=== PATIENT | male | born 1960 ===

== ENCOUNTER 2021-02-09 09:11 | Emergency (ER) | payer OTHER ==
[~2021-02-09] VITALS: Ht 170.2 cm; Wt 61.0 kg
[2021-02-09] MEDS ORDERED: IV NORMAL SALINE 1,000ML 1,000 ML IV ONE ×2 (09:15→12:15)
[2021-02-09] MEDS ORDERED: ONDANSETRON PF 4 MG/2 ML VIAL. IVP ONE (09:15)
[2021-02-09] MEDS ORDERED: MORPHINE SULFATE 4 MG/ML DISP.SYRIN. IV ONE (09:15)
--- NOTE | 2021-02-09 09:21 | PHYS DOC ---
General Adult EDM: Chief Complaint: MECHANICAL FALL HPI: HPI: 60-year-old male presents after fall from ladder. Patient believes he was about 12 feet up on the ladder trying to get onto a roof when the ladder became unstable and he fell onto a rock flower bed below. Patient remembers waking up on the ground. He had loss of consciousness. He is currently complaining of neck pain, thoracic pain, facial pain. He has bleeding from his mouth. Patient has existing poor dentition. Patient denies alcohol or drugs. He does use medical marijuana. The patient is able to feel all 4 extremities. He is able to move all 4 extremities. He does state that his hands feel tingly bilaterall y. No loss of bowel or bladder. The patient was able to walk into the emergency room from [facility]. His biggest complaints are his neck and back pain. Review of Systems: Review of Systems: Constitutional: Denies fever or chills Eyes: Denies change in visual acuity HENT: Dental trauma Respiratory: Denies cough or shortness of breath Cardiovascular: Denies chest pain or edema GI: Denies abdominal pain, nausea, vomiting, bloody stools or diarrhea : Denies dysuria Musculoskeletal: Neck pain, thoracic pain Integument: Denies rash Neurologic: Denies headache, focal weakness or sensory changes Endocrine: Denies polyuria or polydipsia Lymphatic: Denies swollen glands Psychiatric: Denies depression or anxiety Physical Exam: PE: Constitutional: Well developed, well nourished, mild acute distress, non-toxic appearance. [] HENT: Normocephalic, abrasions to the face, bilateral external ears normal, blood in the mouth. Unable to determine location due to collar restrictions. Poor dentition. [] Eyes: PERRLA, EOMI, in the right eye. Left eye pupil oblong and not reactive. Conjunctiva normal, no discharge. 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 [] Neck: Cervical bony tenderness, placed in a collar. Thoracic tenderness without step-offs. [] Cardiovascular: Heart rate regular rhythm, no murmur [] Lungs & Thorax: Bilateral breath sounds clear to auscultation [] Abdomen: Bowel sounds normal, soft, no tenderness, no masses, no pulsatile masses. [] Skin: Warm, dry, no erythema, no rash. [] Back: No tenderness, no CVA tenderness. [] Extremities: No tenderness, no cyanosis, no clubbing, ROM intact, no edema. [] Neurologic: Alert and oriented X 3, normal motor function, normal sensory function, no focal deficits noted. [] Psychologic: Affect normal, judgement normal, mood normal. [] EKG: EKG: [] Radiology/Procedures: Radiology/Procedures: [] Impressions: CT HEAD AND MAXILLOFACIAL WO, CT CERVICAL SPINE WO Date: 02/09/2021 9:24 AM Clinical Indication: fall from ladder, neck pain Comparison: None. Technique: 5 mm axial tomographic images were obtained of the head without contrast. These were viewed on brain and bone windows. Axial helical images of the face were obtained without contrast. Axial and coronal reconstruction was performed. CT imaging of the cervical spine was performed without contrast. Coronal and sagittal reformatted images were performed. One or more of the following dose reduction techniques were utilized: Automated exposure control (AEC), Adjustment of mA and/or kV according to patient size, Use of iterative reconstruction technique such as ASiR, CT scan done according to ALARA and image gently/image wisely CT HEAD FINDINGS: Moderate-sized area of right frontal encephalomalacia. No intra- or extra-axial mass or fluid collection. No acute hemorrhage. The ventricles are normal in size, shape, and morphology. The gilliam-white matter junction is normal. The basilar cisterns are patent. The mastoid air cells are clear. No aggressive osseous lesion or fracture. CT FACE FINDINGS: There is no acute facial bone fracture. The paranasal sinuses are clear. The orbits are normal. The globes are intact. The nasal septum is deviated to the left. Poor dentition with multiple dental caries and periapical lucencies. CT CERVICAL SPINE FINDINGS: The cervical spine is normally aligned. No acute fracture. No aggressive lytic or blastic osseous lesion. Mild multilevel degenerative disc height loss. No high-grade spinal canal stenosis or neural foraminal narrowing. The thyroid gland is normal. No cervical lymphadenopathy. The visualized aerodigestive tract is unremarkable. The visualized lung apices are clear. Impression: 1. No acute intracranial process. 2. No acute facial bone fracture. 3. No acute osseous abnormality of the cervical spine. 4. Poor dentition with multiple dental caries and periapical lucencies. Electronically signed by: Wellington Fortune MD (02/09/2021 9:57 AM) [id number] DICTATED AND SIGNED BY: WELLINGTON FORTUNE MD DATE: 02/09/2152 CC: ZAYRA DRAKE DO ~MTH0 0 CT THORACIC SPINE WO 02/09/2021 9:24 AM Indication: fall from ladder, neck pain Comparison: None. Technique: CT imaging of the thoracic spine was performed without contrast. Cor onal and sagittal reformatted images were performed. One or more of the following dose reduction techniques were utilized: Automated exposure control (AEC), Adjustment of mA and/or kV according to patient size, Use of iterative reconstruction technique such as ASiR, CT scan done according to ALARA and image gently/image wisely. Findings: The thoracic spine is normally aligned. No acute fracture. Vertebral body heights are maintained without compression deformity. Multilevel degenerative disc height loss. No aggressive lytic or blastic osseous lesion. No significant spinal canal stenosis or neural foraminal narrowing. The visualized lungs are clear. No pleural effusion. The visualized thoracic aorta is normal caliber. Impression: 1. No acute osseous abnormality of the thoracic spine. 2. Coronary artery atherosclerotic disease. Electronically signed by: Wellington Fortune MD (02/09/2021 10:00 AM) [id number] DICTATED AND SIGNED BY: WELLINGTON FORTUNE MD DATE: 02/09/2157 CC: ZAYRA DRAKE DO ~MTH0 0 Heart Score: C/O Chest Pain: N/A Risk Factors: Risk Factors: DM, Current or recent (<one month) smoker, HTN, HLP, family history of CAD, obesity. Risk Scores: Score 0 - 3: 2.5% MACE over next 6 weeks - Discharge Home Score 4 - 6: 20.3% MACE over next 6 weeks - Admit for Clinical Observation Score 7 - 10: 72.7% MACE over next 6 weeks - Early Invasive Strategies Course & Med Decision Making: Course & Med Decision Making Pertinent Labs and Imaging studies reviewed. (See chart for details) On arrival the patient was placed in a cervical collar. He was given Zofran and morphine for his pain. The patient was awake, alert and answering all questions appropriately. The patient's imaging is negative for fractures. Head CT is negative for acute findings. He does have evidence of previous stroke. See official reads for more details. His labs are unremarkable. Patient just appears to be banged up. I will discharge her with Flexeril and Percocet. He is stable for discharge at this time. [] Evette Disclaimer: [place] Disclaimer: This electronic medical record was generated, in whole or in part, using a voice recognition dictation system. Departure Departure: Impression: Primary Impression: Fall from ladder Qualified Codes: W11.XXXA - Fall on and from ladder, initial encounter Disposition: HOME / SELF CARE / HOMELESS Condition: STABLE Patient Instructions: Abrasion, [id number], Contusion, [id number] Scripts Oxycodone Hcl/Acetaminophen (PERCOCET 5-325 MG TABLET ) 1 Each Tablet 1 TAB PO PRN TID PRN for PAIN MDD 3 Tablet(s) for 5 Days, #15 TAB 0 Refills Prov: ZAYRA DRAKE DO 02/09/21 Cyclobenzaprine Hcl (CYCLOBENZAPRINE HCL) 10 Mg Tablet 1 TAB PO TID PRN for MUSCLE SPASMS, #30 TAB Prov: ZAYRA DRAKE DO 02/09/21 ZAYRA DRAKE DO Feb 09, 2021 09:21
[2021-02-09 09:53] LABS: BASO # 0.1 x10^3/uL (0.0-0.2); BASO % 1 % (0-3); EOS # 0.1 x10^3/uL (0.0-0.7); EOS % 1 % (0-3); HEMOGLOBIN 14.9 g/dL (13.0-17.5); LYMPH # 1.5 x10^3/uL (1.0-4.8); LYMPH % 19 % (24-48); MEAN CORPUSCULAR HEMOGLOBIN 31 pg (25-35); MEAN CORPUSCULAR HGB CONC 34 g/dL (31-37); MEAN CORPUSCULAR VOLUME 93 fL (79-100); MONO # 0.3 x10^3/uL (0.0-1.1); MONO % 4 % (0-9); NEUT # 6.1 x10^3uL (1.8-7.7); NEUT % 76 % (31-73); PLATELET COUNT 176 x10^3/uL (140-400); RED BLOOD COUNT 4.74 x10^6/uL (4.30-5.70); RED CELL DISTRIBUTION WIDTH 14.4 % (11.5-14.5); WHITE BLOOD COUNT 8.1 x10^3/uL (4.0-11.0)
--- NOTE | 2021-02-09 09:59 | RAD ---
CT HEAD AND MAXILLOFACIAL WO, CT CERVICAL SPINE WO Date: 02/09/2021 9:24 AM Clinical Indication: fall from ladder, neck pain Comparison: None. Technique: 5 mm axial tomographic images were obtained of the head without contrast. These were view ed on brain and bone windows. Axial helical images of the face were obtained without contrast. Axial and coronal reconstruction was performed. CT imaging of the cervical spine was performed without cont rast. Coronal and sagittal reformatted images were performed. One or more of the following dose reduc tion techniques were utilized: Automated exposure control (AEC), Adjustment of mA and/or kV according to patient size, Use of iterative reconstruction technique such as ASiR, CT scan done according to A GLENNY and image gently/image wisely CT HEAD FINDINGS: Moderate-sized area of right frontal encephalomalacia. No intra- or extra-axial mass or fluid collect ion. No acute hemorrhage. The ventricles are normal in size, shape, and morphology. The gilliam-white ma tter junction is normal. The basilar cisterns are patent. The mastoid air cells are clear. No aggressive osseous lesion or fracture. CT FACE FINDINGS: There is no acute facial bone fracture. The paranasal sinuses are clear. The orbits are normal. The globes are intact. The nasal septum is de viated to the left. Poor dentition with multiple dental caries and periapical lucencies. CT CERVICAL SPINE FINDINGS: The cervical spine is normally aligned. No acute fracture. No aggressive lytic or blastic osseous les ion. Mild multilevel degenerative disc height loss. No high-grade spinal canal stenosis or neural foramina l narrowing. The thyroid gland is normal. No cervical lymphadenopathy. The visualized aerodigestive tract is unrem arkable. The visualized lung apices are clear. Impression: 1. No acute intracranial process. 2. No acute facial bone fracture. 3. No acute osseous abnormality of the cervical spine. 4. Poor dentition with multiple dental caries and periapical lucencies. Electronically signed by: Song Bobby MD (02/09/2021 9:57 AM) [id number]
--- NOTE | 2021-02-09 10:02 | RAD ---
CT THORACIC SPINE WO 02/09/2021 9:24 AM Indication: fall from ladder, neck pain Comparison: None. Technique: CT imaging of the thoracic spine was performed without contrast. Coronal and sagittal ref ormatted images were performed. One or more of the following dose reduction techniques were utilized: Automated exposure control (AEC), Adjustment of mA and/or kV according to patient size, Use of itera tive reconstruction technique such as ASiR, CT scan done according to ALARA and image gently/image wi sely. Findings: The thoracic spine is normally aligned. No acute fracture. Vertebral body heights are maintained with out compression deformity. Multilevel degenerative disc height loss. No aggressive lytic or blastic o sseous lesion. No significant spinal canal stenosis or neural foraminal narrowing. The visualized lungs are clear. No pleural effusion. The visualized thoracic aorta is normal caliber. Impression: 1. No acute osseous abnormality of the thoracic spine. 2. Coronary artery atherosclerotic disease. Electronically signed by: Song Bobby MD (02/09/2021 10:00 AM) [id number]
[2021-02-09 10:29] LABS: CALCIUM 7.9 mg/dL (8.5-10.1); CREATININE 0.9 mg/dL (0.7-1.3); GFR 86.4; POTASSIUM 3.7 mmol/L (3.5-5.1)
[2021-02-09 10:33] LABS: ALBUMIN 3.7 g/dL (3.4-5.0); ALBUMIN/GLOBULIN RATIO 1.2 (1.0-1.7); TOTAL BILIRUBIN 0.6 mg/dL (0.2-1.0); TOTAL PROTEIN 6.9 g/dL (6.4-8.2)
[2021-02-09 12:15] VITALS: BP 133/83
[2021-02-09] MEDS ORDERED: HYDROcodone/APAP 7.5/325MG 1 TAB TABLET PO ONE (12:15)
[2021-02-09] MEDS ORDERED: oxyCODONE/APAP 7.5/325 1 TAB TABLET PO ONE (12:30)
[2021-02-09] MEDS ORDERED: OXYC1TAB15 PO (13:22)
[2021-02-09] MEDS ORDERED: CYCL-331 PO (13:22)
== END 2021-02-09 14:41 | disposition home or self-care (01) ==
LOC: ER 09:11
DX: S00.81XA Abrasion of other part of head, initial encounter (principal); M54.2 Cervicalgia; M54.6 Pain in thoracic spine; W11.XXXA Fall on and from ladder, initial encounter; Y93.89 Activity, other specified; Y92.89 Other specified places as the place of occurrence of the external cause; Y99.8 Other external cause status
CPT/HCPCS: 36415; 70450; 70486; 72125; 72128; 80053; 85025; 96361; 96374; 96375; 99285; J2270; J2405; J7030